=== PATIENT | male | born 1990 | race Caucasian/White ===

== ENCOUNTER 2016-08-08 14:03 | Emergency (ER) | payer OTHER ==
[~2016-08-08] VITALS: Ht 177.8 cm; Wt 81.0 kg
[~2016-08-08 14:03] MED LIST: PERCOCET 5/31 TABLET PO; VIBRAMYCIN100 MG PO
[2016-08-08 15:18] LABS: ADD MIUA? NO; BILIRUBIN NEGATIVE; BLOOD NEGATIVE; COLOR YELLOW ((YELLOW)); GLUCOSE (STRIP) NEGATIVE; KETONES 5; LEUKOCYTES NEGATIVE; NITRITE NEGATIVE; PROTEIN (STRIP) NEGATIVE; SPECIFIC GRAVITY 1.025 (1.000-1.030); UCUL ADDED? NO
[2016-08-08] MEDS ORDERED: PERCOCET 5/31 TABLET PO (16:36)
[2016-08-08] MEDS ORDERED: VIBRAMYCIN100 MG PO (17:13)
[2016-08-08 17:34] VITALS: BP 130/66
[2016-08-09 13:54] LABS: CHLAMYDIA TRACHOMATIS NEGATIVE; NEISSERIA GONORRHOEAE NEGATIVE
== END 2016-08-08 17:35 | disposition home or self-care (01) ==
LOC: EME 14:03
PROVIDERS: Physician Assistant Medical
DX: N45.3 Epididymo-orchitis (principal); N49.2 Inflammatory disorders of scrotum; F17.200 Nicotine dependence, unspecified, uncomplicated
CPT/HCPCS: 76870; 81003; 87491; 87591; 99281; 99283

== ENCOUNTER 2016-09-13 09:17 | Emergency (ER) | payer OTHER ==
[~2016-09-13] VITALS: Ht 177.8 cm; Wt 82.3 kg
[2016-09-13] MEDS ORDERED: NAPROSYN500 MG PO (12:23)
[2016-09-13 12:38] VITALS: BP 151/74
== END 2016-09-13 12:38 | disposition home or self-care (01) ==
LOC: EME 09:17
DX: S93.402A Sprain of unspecified ligament of left ankle, initial encounter (principal); X50.1XXA Overexertion from prolonged static or awkward postures, initial encounter; Y93.67 Activity, basketball
CPT/HCPCS: 73610; 99281; 99283